=== PATIENT | male | born 1965 | race Two or more races ===

== ENCOUNTER 2023-04-10 12:27 | Emergency (ER) | payer OTHER ==
[~2023-04-10] VITALS: Ht 170.2 cm; Wt 87.1 kg
[2023-04-10 12:52] VITALS: O2SAT 98
[2023-04-10] MEDS ORDERED: ACETAMINOPHEN 325 MG TABLET PO ONE (13:30)
[2023-04-10] MEDS ORDERED: ACETAMINOPHEN ES 500 MG TABLET ONE (13:33)
== END 2023-04-10 14:22 | disposition home or self-care (01) ==
LOC: ER 12:48
DX: F07.81 Postconcussional syndrome (principal); E78.5 Hyperlipidemia, unspecified
CPT/HCPCS: 70450; A4663; A9150